=== PATIENT | male | born 1985 | race Caucasian/White ===

== ENCOUNTER 2018-02-11 21:17 | Emergency (ER) | payer OTHER, SELFPAY ==
[2018-02-11 21:19] VITALS: BP 165/101; PULSE 98; RESP 16; TEMP 36.6; O2SAT 96; BMI 45.1
--- NOTE | 2018-02-11 21:38 | RAD_ITS ---
STUDY: X-RAY - RIGHT WRIST REASON FOR EXAM: Male, 32 years old. Pain TECHNIQUE: 6 view(s) of the wrist were obtained. COMPARISON: None. FINDINGS: There is a negative ulnar variance but the lunate bone is normal. The rest of the carpal bones are normal. The radiocarpal articulation is well-maintained. The first carpometacarpal, carpal and mid carpal joints are normal. The soft tissues of the wrist are normal. RAD/Wrist min 3 Views IMPRESSION: No fracture. A negative ulnar variance. Normal lunate bone. No degenerative changes Electronically Signed: Noe Suarez MD at 21:55 EST Tel , Service support ,
--- NOTE | 2018-02-11 22:05 | ED.DCSUM_ITS ---
- ER Visit Summary Date of Service: 02/11/18 Chief Complaint: [Injury to right wrist] History of Present Illness: The patient is a 32 M [presents to the emergency department complaint of injury to his right wrist that occurred today around 4 PM while at work. Patient states that he was trying to dislodge apart off of the machine and the wrist rolled forward causing him significant discomfort. Patient is right-hand dominant. He denies any numbness or tingling. He denies any weakness the extremity. Complains of pain with range of motion.] Physical Examination: [Right wrist-there is mild diffuse soft tissue swelling with diffuse tenderness to palpation over the carpal bones and the radiocarpal joint. Patient has pain with flexion and extension of the wrist. He is able to make a fist and complete extend all digits. Neurovascularly intact. There is no deformity.] Test Results: [X-rays of the right wrist obtained showed negative ulnar variance but normal lunate bone. No fracture is noted. No dislocations.] Emergency Department Course and Treatment: [Patient was given a wrist splint and will be referred to orthopedics for follow-up] Treatment Plan: [Follow-up with orthopedics informatics consultant in 5-7 days.] Disposition: [Discharged home in stable condition] Impression: [Right wrist sprain] This note was generated with [employer] dictation software. It may contain incorrect words, spelling, and punctuation that were not noted in review of the chart prior to signing ED Disposition - Plan for ED Patient: Chief Complaint: Upper Extremity Injury Referrals: Care Physician,No Primary [Primary Care Provider] -
--- NOTE | 2018-02-11 22:08 | ED.DEP ---
ED Disposition - Plan for ED Patient: Chief Complaint: Upper Extremity Injury Instructions: ED Sprain Wrist Referrals: Care Physician,No Primary [Primary Care Provider] - Jake Keene MD [STAFF PHYSICIAN] - 5-7 Days
--- OUTSIDE RECORDS SUMMARY | 2018-05-16 14:06 | XMS RPT_ITS ---
:1985 Author Organization [facility] Care Team Providers Name Role Phone Saravanan Millard Attending Unavailable Primay Care Physicia, No Primary Care Unavailable Primay Care Physicia, No Primary Care Unavailable MENDY MATT Attending Unavailable PROBLEMS PROBLEMS No Problem Records FoundPROCEDURES PROCEDURES No Procedure Records FoundRESULTS RESULTS EMERGENCY DEPARTMENT Observed: 02/19/2018 Status: F Source: [place] SUMMARY 7:13 PM [facility] REPOSITORY [facility] Medical Records Department [address] [place] [address] Emergency Department Summary 02/19/18 1842 MR#: [id number] Acct: [id number] Name: KEANN DIETZ Rep #: [id number] : 1985 32 From: Mendy Matt MD PCP: Care Physician, No Primary Status: REG ER History of Present Illness Chief Complaint: Dental Informant: Patient Onset: Days - 2 Context: Gradual Onset Timing: Continuous Quality: ache Location: left upper molar Current Severity: Severe Maximum Severity: Severe Worsened by: eat/drink Relieved by: nothing - tried tylenol. has no topicals. Associated Symptoms: none. no fevers, swelling, earache. Past Medical History - Allergies and Home Meds Allergies/Adverse Reactions: Allergies No Known Allergies Allergy (Verified 02/11/18 21:22) Primary Care Physician: Care Physician,No Primary [Primary Care Provider] - Past Medical History: None Smoking Status: Former smoker Drugs: None Review of Systems General: Denies: Chills, Fever Eyes: Denies: Visual changes - bilaterally, Diplopia ENT: Reports: - - dental pain. Denies: Bilateral ear pain, Sore throat Gastrointestinal: Denies: Nausea, Vomiting Physical Exam Vital Signs/Narrative: Vital Signs 02/19/18 18:06 97.6 F L 90 16 155/97 H 98 Inital Vital Signs reviewed: Yes General: Well nourished, Well developed Head: Normocephalic, Atraumatic Eyes: Perrl, EOMI ENT: Moist mucous membranes, No rhinorrhea, - - Tender tooth #15, which appears to have a physical deficit posteriorly. No discharge or abscess. No trismus. No gingivitis or bleeding. No sublingual edema. No cervical lymphadenopathy.. Negative for: Sinus tenderness Neck: Supple, Nontender, No lymphadenopathy Skin: Normal color, No rash Neurological: Alert, Oriented x3, Cranial nerves II-XII grossly intact, Normal Strength, Normal Sensation, Normal Gait Psychological: Normal affect Diagnostic/Tx/Re-eval - Medical Decision Making Topical benzocaine was sprayed into the cavity site, followed by Cavit temporary filling. He tolerated this well and said that his tooth was already feeling better. He was additionally given a naproxen and amoxicillin, prescribed both, to treat any possible early infection, in addition to being given the rest of the vial of temporary dental filling. There is no abscess. Dental follow-up advised. He is comfortable with that plan. ED Disposition - Plan for ED Patient: Disposition: Home or Assisted Living Chief Complaint: Dental Diagnosis: Odontalgia, Dental caries Instructions: ED Tooth Pain, ED Cavity Dental Prescriptions: Naproxen [Naprosyn] 500 mg PO BID PRN #20 tab Amoxicillin 875 mg PO BID #20 tab Referrals: Dentist,Your [STAFF PHYSICIAN] - As soon as possible Jacinda Palumbo [NON-STAFF] - (if you do not have a dentist) What to do if you have Problems For any increased pain, shortness of breath, bleeding, nausea or vomiting, chest pain, or any unexpected problems, contact your Primary Care Provider. Call [facility] ([phone]) or report to the closest Emergency Room. Call 911 if necessary. 02/19/181912 <Electronically signed by Mendy Matt MD> Date Mendy Matt MD Cosigner Signature (If Indicated): Date CC: No Primary Care Physician DISCHARGE INSTRUCTION Observed: 02/11/2018 Status: F Source: [place] 10:09 PM [facility] REPOSITORY [facility] Medical Records Department [address] [place] [address] Discharge Instruction 02/11/182207 MR#: [id number] Acct: [id number] Name: KENAN DIETZ Rep #: [id number] : 1985 32 From: Saravanan Millard DO PCP: Care Physician, No Primary Status: REG ER ED Disposition - Plan for ED Patient: Chief Complaint: Upper Extremity Injury Instructions: ED Sprain Wrist Referrals: Care Physician,No Primary [Primary Care Provider] - Jake Keene MD [STAFF PHYSICIAN] - 5-7 Days What to do if you have Problems For any increased pain, shortness of breath, bleeding, nausea or vomiting, chest pain, or any unexpected problems, contact your Primary Care Provider. Call [facility] ([phone]) or report to the closest Emergency Room. Call 911 if necessary. 02/11/182208 <Electronically signed by Saravanan Millard DO> Date Saravanan Millard DO Cosigner Signature (If Indicated): Date CC: No Primary Care Physician EMERGENCY DEPARTMENT Observed: 02/11/2018 Status: F Source: [place] SUMMARY 10:05 PM [facility] REPOSITORY [facility] Medical Records Department [address] [place] [address] Emergency Department Summary 02/11/182202 MR#: [id number] Acct: [id number] Name: KENAN DIETZ Rep #: [id number] : 1985 32 From: Saravanan Millard DO PCP: Bib Physician, No Primary Status: REG ER - ER Visit Summary Date of Service: 02/11/18 Chief Complaint: [Injury to right wrist] History of Present Illness: The patient is a 32 M [presents to the emergency department complaint of injury to his right wrist that occurred today around 4 PM while at work. Patient states that he was trying to dislodge apart off of the machine and the wrist rolled forward causing him significant discomfort. Patient is right-hand dominant. He denies any numbness or tingling. He denies any weakness the extremity. Complains of pain with range of motion.] Physical Examination: [Right wrist-there is mild diffuse soft tissue swelling with diffuse tenderness to palpation over the carpal bones and the radiocarpal joint. Patient has pain with flexion and extension of the wrist. He is able to make a fist and complete extend all digits. Neurovascularly intact. There is no deformity.] Test Results: [X-rays of the right wrist obtained showed negative ulnar variance but normal lunate bone. No fracture is noted. No dislocations.] Emergency Department Course and Treatment: [Patient was given a wrist splint and will be referred to orthopedics for follow-up] Treatment Plan: [Follow-up with orthopedics recreation professor in 5-7 days.] Disposition: [Discharged home in stable condition] Impression: [Right wrist sprain] This note was generated with [employer] dictation software. It may contain incorrect words, spelling, and punctuation that were not noted in review of the chart prior to signing ED Disposition - Plan for ED Patient: Chief Complaint: Upper Extremity Injury Referrals: Care Physician,No Primary [Primary Care Provider] - What to do if you have Problems For any increased pain, shortness of breath, bleeding, nausea or vomiting, chest pain, or any unexpected problems, contact your Primary Care Provider. Call [facility] ([phone]) or report to the closest Emergency Room. Call 911 if necessary. 02/11/18 8071 <Electronically signed by Saravanan Millard DO> Date Saravanan Millard DO Cosigner Signature (If Indicated): Date CC: No Primary Care Physician WRIST MIN 3 VIEWS Observed: 02/11/2018 Status: F Source: [place] 9:35 PM [facility] REPOSITORY [facility] Imaging Services [address] [place] [address] Wrist min 3 Views MR#: [id number] Acct: [id number] Name: KENAN DIETZ Rep #: [id number] : 1985 [facility] From: Noe Suarez MD PCP: Care Physician, No Primary Status: REG ER Study: Wrist min 3 Views Date of Exam: 02/11/18 Exam# [id number] Ordering Dr: Saravanan Millard DO STUDY: X-RAY - RIGHT WRIST REASON FOR EXAM: Male, 32 years old. Pain TECHNIQUE: 6 view(s) of the wrist were obtained. COMPARISON: None. FINDINGS: There is a negative ulnar variance but the lunate bone is normal. The rest of the carpal bones are normal. The radiocarpal articulation is well-maintained. The first carpometacarpal, carpal and mid carpal joints are normal. The soft tissues of the wrist are normal. RAD/Wrist min 3 Views IMPRESSION: No fracture. A negative ulnar variance. Normal lunate bone. No degenerative changes Electronically Signed: Noe Suarez MD at 21:55 EST Tel , Service support , CC: No Primary Care Physician; Saravanan Millard DO Artist'S Representative: Signed ALLERGIES ALLERGIES DATE TYPE / CODE NAME / CODE REACTION SEVERITY SOURCE 02/19/2018 Drug No Known Unknown [facility] Allergy/4160 Allergies/F00 Hospital [address](SNOMED [id number](RXNOR Repository CT) M) ENCOUNTERS ENCOUNTERS ADMIT/DISCHARGE ACCOUNT ADMITTING ENCOUNTER LOCATION SOURCE NUMBER CLASS 02/19/2018/ [id number] Emergency [address] ing:ED Repository 02/11/2018/ [id number] Emergency [address] ing:ED Repository PAYERS PAYERS ENCOUNTER GUARANTOR PAYER SUBSCRIBER SOURCE 02/19/2018 KENAN DIETZ2222 Insurance:ANTHEMPolic SHAFFERDOB: Community [address] y Number: [id number] [id number] Repository [address]: [phone]) robert Date:[id number] [phone] () [address], [place] [address]YK: 02/19/2018 Secondary NOT GIVENUNK [place] Insurance:SELF PAY [facility] Number: Effective Repository Date:2018-02-19 02/11/2018 KENAN COBBFFER2222 Insurance:SELF INS SHAFFERDOB: Community [address] [facility] LUKPolicy Number: [id number] [id number] Repository [address]Bnv: (330) Date:[id number] [phone] () [facility] [address] [address], [place] [address]GH: 02/11/2018 Secondary NOT GIVENUNK [place] Insurance:SELF PAY [facility] Number: Effective Repository Date:2018-02-11
== END 2018-02-11 22:29 | disposition home or self-care (01) ==
LOC: ED 21:44
PROVIDERS: Emergency Provider Emergency Medicine
DX: S63.501A Unspecified sprain of right wrist, initial encounter (principal); X50.9XXA Other and unspecified overexertion or strenuous movements or postures, initial encounter; Y93.9 Activity, unspecified; Y92.89 Other specified places as the place of occurrence of the external cause; Y99.0 Civilian activity done for income or pay
CPT/HCPCS: 73110; 99283

== ENCOUNTER 2018-02-19 18:04 | Emergency (ER) | payer BC, SELFPAY ==
[2018-02-19 18:06] VITALS: BP 155/97; PULSE 90; RESP 16; TEMP 36.4; O2SAT 98; BMI 38.2
--- NOTE | 2018-02-19 18:45 | ED.DCSUM_ITS ---
History of Present Illness Chief Complaint: Dental Informant: Patient Onset: Days - 2 Context: Gradual Onset Timing: Continuous Quality: ache Location: left upper molar Current Severity: Severe Maximum Severity: Severe Worsened by: eat/drink Relieved by: nothing - tried tylenol. has no topicals. Associated Symptoms: none. no fevers, swelling, earache. Past Medical History - Allergies and Home Meds Allergies/Adverse Reactions: Allergies No Known Allergies Allergy (Verified 02/11/18 21:22) Primary Care Physician: Care Physician,No Primary [Primary Care Provider] - Past Medical History: None Smoking Status: Former smoker Drugs: None Review of Systems General: Denies: Chills, Fever Eyes: Denies: Visual changes - bilaterally, Diplopia ENT: Reports: - - dental pain. Denies: Bilateral ear pain, Sore throat Gastrointestinal: Denies: Nausea, Vomiting Physical Exam Vital Signs/Narrative: Vital Signs Temp Pulse Resp BP Pulse Ox 02/19/18 18:06 97.6 F L 90 16 155/97 H 98 Inital Vital Signs reviewed: Yes General: Well nourished, Well developed Head: Normocephalic, Atraumatic Eyes: Perrl, EOMI ENT: Moist mucous membranes, No rhinorrhea, - - Tender tooth #15, which appears to have a physical deficit posteriorly. No discharge or abscess. No trismus. No gingivitis or bleeding. No sublingual edema. No cervical lymphadenopathy.. Negative for: Sinus tenderness Neck: Supple, Nontender, No lymphadenopathy Skin: Normal color, No rash Neurological: Alert, Oriented x3, Cranial nerves II-XII grossly intact, Normal Strength, Normal Sensation, Normal Gait Psychological: Normal affect Diagnostic/Tx/Re-eval - Medical Decision Making Topical benzocaine was sprayed into the cavity site, followed by Cavit temporary filling. He tolerated this well and said that his tooth was already feeling better. He was additionally given a naproxen and amoxicillin, prescribed both, to treat any possible early infection, in addition to being given the rest of the vial of temporary dental filling. There is no abscess. Dental follow-up a dvised. He is comfortable with that plan. ED Disposition - Plan for ED Patient: Disposition: Home or Assisted Living Chief Complaint: Dental Diagnosis: Odontalgia, Dental caries Instructions: ED Tooth Pain, ED Cavity Dental Prescriptions: Naproxen [Naprosyn] 500 mg PO BID PRN #20 tab Amoxicillin 875 mg PO BID #20 tab Referrals: Dentist,Your [STAFF PHYSICIAN] - As soon as possible Jacinda Palumbo [NON-STAFF] - (if you do not have a dentist)
[2018-02-19] MEDS: Naproxen 500 MG Tablet PO (19:11)
[2018-02-19] MEDS: AMOXICILLIN 500 MG CAPSULE PO (19:11)
== END 2018-02-19 19:14 | disposition home or self-care (01) ==
PROVIDERS: Emergency Provider Emergency Medicine
DX: K02.9 Dental caries, unspecified (principal); K08.89 Other specified disorders of teeth and supporting structures; Z87.891 Personal history of nicotine dependence
CPT/HCPCS: 99283

== ENCOUNTER 2019-08-04 12:08 | Emergency (ER) | payer BC, SELFPAY ==
[2019-08-04 12:09] VITALS: BP 155/71; PULSE 102; RESP 17; TEMP 36.1; O2SAT 97; BMI 51.8
--- NOTE | 2019-08-04 12:22 | ED.VIS.BACK ---
History of Present Illness Informant: Patient Onset: Today Context: Gradual Onset Chronic pain exacerbated by: sleeping on couch Injury: - - sleeping on couch Timing: Continuous Quality: Sharp Location: Lumbar Current Severity: Moderate Maximum Severity: Severe Worsened by: improves with: Movement, Ambulation, Bending Relieved by: Nothing Narrative: 34-year-old male presents to the emergency department with low back pain. Patient has chronic low back pain, he accidentally fell asleep on the couch last night and woke up with some pain and what he describes as tightness in his back. 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 He denies any numbness tingling or weakness loss of bowel or bladder function or trauma. He is ambulatory. No difficulty urinating or constipation. No fevers. He denies IV drug abuse. He denies abdominal pain. He denies fevers or upper respiratory symptoms. He denies leg pain or swelling. Prior similar symptoms: Yes, With Prior Back Pain Recent Illness/Hospitalization: No <Dennis Jones - Last Filed: 08/04/19 12:22> <Vijay Luo - Last Filed: 08/04/19 16:12> Chief Complaint: Back Past Medical History Prior records reviewed: Yes Past Medical History: None Surgical History: no surgical history Lives: With Family Smoking Status: Former smoker Alcohol: Occasional Drugs: None <Dennis Jones - Last Filed: 08/04/19 12:22> <Vijay Luo - Last Filed: 08/04/19 16:12> - Allergies and Home Meds Allergies/Adverse Reactions: Allergies No Known Allergies Allergy (Verified 08/04/19 12:08) Primary Care Physician: Rachel Hendricks DO [STAFF PHYSICIAN] - Review of Systems All systems negative except as indicated General: Denies: Chills, Fever, Malaise, Subjective, Sweats Eyes: Denies: Visual changes - bilaterally, Diplopia ENT: Denies: Rhinorrhea, Sore throat Cardiovascular: Denies: Chest pain, Palpitations Respiratory: Denies: Dyspnea, Cough, Dyspnea on exertion Gastrointestinal: Denies: Abdominal pain, Nausea, Vomiting, Diarrhea, Melena, Hematochezia Genitourinary: Denies: Dysuria, Hematuria, Frequency Musculoskeletal: Reports: Back pain. Denies: Myalgias, Arthralgias, Neck pain, Swelling, Extremity Pain Skin: Denies: Rash, Abrasions, Wounds Neurological: Denies: Headache, Weakness, Parasthesia, Numbness <Dennis Jones - Last Filed: 08/04/19 12:22> Physical Exam Vital Signs/Narrative: Vital Signs Temp Pulse Resp BP Pulse Ox 08/04/19 12:09 96.9 F L 102 H 17 155/71 H 97 Inital Vital Signs reviewed: Yes General: Well nourished, Well developed Head: Normocephalic, Atraumatic Eyes: Perrl, EOMI ENT: Moist mucous membranes Neck: Supple, Nontender, No lymphadenopathy, No JVD Cardiovascular: Regular rate, Regular rhythm Respiratory: No distress, CTA bilaterally, Chest nontender Abdomen: Soft, Nontender, Nondistended, Normal bowel sounds, No masses Back: Normal Inspection, Paraspinal Tenderness, Negative SLR - Right, Negative SLR - Left. Negative for: Surgical Scar, Spinal tenderness, CVA tenderness, Positive SLR - Right, Positive SLR - Left Extremeties: Nontender, No edema, Strong Pulses Skin: Normal color, No rash, No Trauma Neuro: Alert, Oriented, Normal Strength, Normal Sensation, Normal DTR, Normal Gait, Normal Reflexes Psychological: Normal affect, Normal Mood <Dennis Jones - Last Filed: 08/04/19 12:22> Diagnostic/Tx/Re-eval - Medical Decision Making Patient presents with low back pain. Patient slept on his couch last night and has tightness in his back and does not feel comfortable going to work. He does not have any signs or symptoms concerning for cauda equina syndrome at this time. Patient has stable vital signs and is well-appearing. He declined analgesia in the emergency department. He is requesting a note for work. This will be provided and prescriptions for both Naprosyn and Flexeril. I advised him to rest and ice and I provided him with a primary care physician to follow-up with. Return precautions to the emergency department were reviewed and the patient voiced understanding <Dennis Jones - Last Filed: 08/04/19 12:22> - Medical Decision Making Patient was seen with me. I did a pstd-ex-augm evaluation with the patient. Patient presents with low back pain that began today while he was at work. Patient states he slept on his couch last night while watching TV. Patient states his pain is been getting progressively worse. Patient denies any radiation of the pain. Patient denies any paresthesias or weakness. Patient denies any bowel or bladder changes. Patient denies any saddle anesthesia. Vital signs are stable. Patient is afebrile. Patient is in no acute distress. Musculoskeletal exam reveals tenderness over the lumbar paraspinal muscles bilaterally. There is some mild spasm. Range of motion was limited in all motions of the lumbar spine secondary to pain. Strength is 5/5 bilaterally in lower extremities. There are no sensory deficits noted. Deep tendon reflexes are 2/4 bilaterally in the lower extremities. Pedal pulses are equal bilaterally. Patient was given prescriptions for Naprosyn and Flexeril. Patient instructed to use ice to the area. Patient was given a note for work for today. Patient was instructed to follow-up with his primary care physician in 5 to 7 days. Patient understood and was agreeable with the plan. All questions were answered. <Vijay Luo - Last Filed: 08/04/19 16:12> ED Disposition <Dennis Jones - Last Filed: 08/04/19 12:22> <Vijay Luo - Last Filed: 08/04/19 16:12> - Plan for ED Patient: Disposition: Home or Assisted Living Diagnosis: Low back pain Instructions: ED Back Pain Acute or Chronic Prescriptions: cycloBENZAPRine HCl [Flexeril] 10 mg PO TID PRN #20 tab PRN Reason: Muscle Spasm Prescription Printed Naproxen [Naprosyn] 500 mg PO BID #20 tab Prescription Printed Referrals: Rachel Hendricks DO [STAFF PHYSICIAN] -
== END 2019-08-04 12:47 | disposition home or self-care (01) ==
LOC: ED 12:47
PROVIDERS: Emergency Provider Physician Assistant Medical
DX: M54.5 Low back pain (principal); G89.29 Other chronic pain; Z87.891 Personal history of nicotine dependence
CPT/HCPCS: 99282

== ENCOUNTER 2022-11-05 15:11 | Emergency (ER) | payer MEDICAID, SELFPAY ==
[2022-11-05 15:11] VITALS: BP 154/90; PULSE 91; RESP 16; TEMP 36.1; O2SAT 95; BMI 43.2
--- NOTE | 2022-11-05 16:18 | CT_ITS ---
STUDY: CT SOFT TISSUE NECK WITH CONTRAST REASON FOR EXAM: Male, 37 years old. swelling and pain IN NECK RADIATION DOSAGE (If Supplied By Facility): CTDIvol = ( 18.25 ) mGy, DLP = ( 556.40 ) mGycm TECHNIQUE: The patient was scanned in a multi-detector CT scanner. High resolution transaxial imaging was performed following intravenous administration of IV 100mL Isovue-370. Sagittal and coronal images were reconstructed. Individualized dose optimization techniques were used for this CT. COMPARISON: None. FINDINGS: Mild diffuse edematous changes or cellulitis are seen within the subcutaneous fat of the jaw bilaterally with associated thickening of the platysma. There are mildly enlarged nodes within the submandibular and sublingual spaces bilaterally larger on the left. There is also a large node within the left posterior triangle. There are tiny bilateral nonenhancing periparotid nodes Normal bilateral glass science engineer spaces. Normal bilateral parapharyngeal spaces. Normal bilateral carotid spaces. Normal bilateral sublingual and submandibular glands and spaces. Normal visualized nasopharynx. Normal retropharyngeal space. Normal perivertebral space. Normal visualized bilateral faucial tonsils. The visualized tongue, tongue base and oropharynx are normal. The visualized cervical lymph nodes (levels I-) are within normal size limits, and maintain normal morphology. There is no demonstrated solid or cystic mass lesion. There is no abnormal contrast enhancement. Normal epiglottis, bilateral vallecula and hypopharynx. The pre-epiglottic and paraglottic adipose spaces are normal. Normal visualized bilateral piriform sinuses, aryepiglottic folds, vocal cords, and arytenoid-cricoid articulations. Normal subglottic trachea. Normal bilateral lobes of the thyroid gland. Normal visualized pulmonary apices. Normal visualized paranasal sinuses. Normal visualized cervical spine. CT/Soft Tissue Neck WITH Contrast IMPRESSION: Diffuse edematous changes or cellulitis within the subcutaneous fat of the jaw bilaterally with enlarged nodes more pronounced on the left of indeterminate etiology likely due to inflammatory changes. No focal abscess or evidence for acute osteomyelitis. Otherwise no discrete mass within the neck however endoscopic evaluation recommended to exclude possibility of mucosal lesions if clinically warranted Electronically Signed: Edmundo Geiger MD at 17:29 EDT ,
--- NOTE | 2022-11-05 16:40 | ED.VIS.DENTA ---
HPI History of Present Illness Chief Complaint: Dental Informant: patient Narrative Narrative: 37-year-old male presenting to the emergency department chief complaint of jaw swelling. Patient states that he knows he has some dental issues for which she needs to see dentistry. He tells me that his central incisor on the jawline is loose and may fall out. He is developed a swelling along the left mandible now into the anterior portion of the mandible. He has not had any significant swelling. No fevers. No change in his saliva production. He denies any swelling inside the mouth. He states that due to the swelling has become slightly difficult to swallow. [facility] Medical History (Updated 11/05/22 @ 17:[address] Maxime Ron DO) Back problem Frequent headaches H/O emotional problems Home Medications baclofen 10 mg tablet 10 mg PO QHS PRN muscle spasm #30 tabs 09/03/19 [Rx Last Taken Unknown] blood pressure monitor #1 ea 09/03/19 [Rx Last Taken Unknown] meloxicam 15 mg tablet 15 mg PO DAILY PRN pain #30 tabs 09/03/19 [Rx Last Taken Unknown] amoxicillin 875 mg-potassium clavulanate 125 mg tablet 1 tab PO BID 10 days #20 tabs 11/05/22 [Rx Last Taken Unknown] hydrocodone-acetaminophen 5-325mg 5mg-325mg 1 tab PO Q6H PRN PRN Pain 3 days #12 TABLETS 11/05/22 [Rx Last Taken Unknown] Allergy/AdvReac Type Severity Reaction Status Date / Time No Known Allergies Allergy Verified 11/05/22 15:13 Family History Grandmother Diabetes Arthritis Father Bipolar 1 disorder Social History Smoking Status: Former smoker alcohol intake: current alcohol intake frequency: holidays/special occasions only Alcohol type: beer substance use type: does not use what type of physical activity do you participate in: none ROS ROS ED Constitutional Constitutional ED: Denies chills, fever(s) or weight loss Eyes Eyes: Denies change in vision or diplopia ENT ENT ED: Reports other Details: See history of present illness ; Denies ear pain, rhinorrhea or sore throat Cardiovascular Cardiovascular: Denies chest pain, orthopnea, palpitations or racing heartbeat Respiratory/Chest Respiratory/Chest: Denies cough, dyspnea or orthopnea Gastrointestinal Gastrointestinal: Denies abdominal pain, diarrhea, nausea or vomiting Genitourinary Genitourinary ED: Denies dysuria, hematuria or urinary frequency Musculoskeletal Musculoskeletal: Denies arthralgias or myalgias Integumentary Denies abscess or rash Neurologic Neurologic: Denies headache(s) or weakness Psychiatric Psychiatric: Denies anxiety, depression, suicidal ideation or suicidal thoughts Endocrine Endocrinology: Denies polydipsia, polyphagia or polyuria Allergic/Immunologic Allergic/Immunologic ED: Denies mouth swelling, tongue swelling or urticaria EXAM Physical Exam Const Vital Signs: 11/05/22 15:11 Temperature 97 F L Temperature Source Temporal Pulse Rate 91 Respiratory Rate 16 Blood Pressure 154/90 H Blood Pressure Mean 111 Pulse Ox 95 Oxygen Delivery Method Room Air Positive well nourished, well developed and obese General Appearance ED: well developed Nutritional Appearance: obese HEENT Reports normocephalic, head/scalp atraumatic and moist mucous membranes HEENT Narrative: There is widespread dental caries and evidence of gingivitis. There is floor the mouth is soft with no significant swelling. There is no trismus. There is no drainable abscess that I can see. There is a degree of swelling along the inferior left mandible extending into the anterior mandible. There is no overlying erythema. He is laying back in a 45 degree angle handling his secretions. Eyes PERRL and EOMs intact bilaterally Neck no lymphadenopathy, supple and no JVD Resp normal respiratory effort and clear to auscultation bilaterally Cardio regular rate, regular rhythm and no murmurs GI normal to inspection, nondistended, normoactive bowel sounds and non-tender Palpation: soft Back/Spine no CVA tenderness and normal ROM Extremity normal to inspection General Extremety ED: Negative for edema General Extremity: Negative for edema Neuro oriented x3 and CN's II-XII intact bilaterally Sensorium / Orientation: alert Motor Exam: strength 5/5 throughout Psych mental status grossly normal Mood & Affect: Negative for depressed or tearful Skin no rashes or lesions noted and no wounds MDM MDM MDM Narrative Medical decision making narrative: Creatinine is normal 0.92. This was obtained as the patient tells me he has been taking a lot of ibuprofen. His blood sugar is also noted to be 237. He needs to have primary care follow this up. CT of the neck with IV contrast was obtained. This demonstrates edematous changes in the subcutaneous tissue. There is no focal abscess noted. The patient will be started on Augmentin and pain medication. I did recommend dental follow-up. He notes understanding of return instructions. He also notes that he needs to follow-up on his blood sugar. Lab Data Attestation: I reviewed the patient's lab results. Labs: Laboratory Results - last 24 hr 11/05/22 16:28 Sodium 135 L Potassium 4.2 Chloride 102 Carbon Dioxide 29.0 Anion Gap 4 L BUN 16 Creatinine 0.92 Estim Creat Clear Calc 95.63 Est GFR (MDRD) Af Amer 119 Est GFR (MDRD) Non-Af 98 BUN/Creatinine Ratio 17.4 Glucose 237 H Calcium 9.7 Radiography Diagnostic Testing: Clinical Impression(s) from Imaging Studies Soft Tissue Neck CT 11/05/22 16:18 IMPRESSION: Diffuse edematous changes or cellulitis within the subcutaneous fat of the jaw bilaterally with enlarged nodes more pronounced on the left of indeterminate etiology likely due to inflammatory changes. No focal abscess or evidence for acute osteomyelitis. Otherwise no discrete mass within the neck however endoscopic evaluation recommended to exclude possibility of mucosal lesions if clinically warranted Electronically Signed: Edmundo Geiger MD at 17:29 EDT , Discharge Plan Triage Chief Complaint: Dental ED Provider: Maxime Ron Dx/Rx/DC Orders Clinical Impression: Cellulitis of neck, Dental caries, Hyperglycemia Instructions: High Blood Sugar (Hyperglycemia), ED Cellulitis, ED Dental Cavity Prescriptions: New amoxicillin-pot clavulanate 875-125 mg tablet 1 tab PO BID 10 Days Qty: 20 0RF hydrocodone-acetaminophen [hydrocodone-acetaminophen] 5-325 mg tablet 1 tab PO Q6H PRN PRN (Reason: Pain) 3 Days Qty: 12 0RF No Action baclofen 10 mg tablet 10 mg PO QHS PRN (Reason: muscle spasm) Qty: 30 0RF meloxicam 15 mg tablet 15 mg PO DAILY PRN (Reason: pain) Qty: 30 0RF (DME) blood pressure monitor Kit See Rx Instructions .ROUTE .MEDSUPPLY Qty: 1 0RF Rx Instructions: Check blood pressure daily for hypertension I10 Primary Care Provider: Care Physician,No Primary Referrals: Care Physician,No Primary [Primary Care Provider] - Disposition Disposition: Home, Self Care
[2022-11-05 16:50] LABS: Anion Gap 4 (5-15); BUN 16 mg/dL (7-18); BUN/Creat Ratio 17.4 RATIO (10-20); Calcium,Total 9.7 mg/dL (8.5-10.1); Chloride 102 mmol/L (98-107); Creatinine, Serum 0.92 mg/dL (0.70-1.30); EST Glomerular Filtration Rate 98 mL/min (>60); Est Glom Filt Rate - Afr Amer 119 mL/min (>60); Estimated Creatinine Clearance 95.63 ml/min; Glucose 237 mg/dL (74-106); Potassium 4.2 mmol/L (3.5-5.1); Sodium Level 135 mmol/L (136-145)
== END 2022-11-05 18:03 | disposition home or self-care (01) ==
PROVIDERS: Emergency Provider Emergency Medicine; Visit Provider Emergency Medicine
DX: L03.221 Cellulitis of neck (principal); K02.9 Dental caries, unspecified; R73.9 Hyperglycemia, unspecified; R60.9 Edema, unspecified; E66.9 Obesity, unspecified; Z79.899 Other long term (current) drug therapy; Z87.891 Personal history of nicotine dependence
CPT/HCPCS: 70491; 80048; 99283; A4216

== ENCOUNTER 2022-11-21 03:31 | Emergency (ER) | payer MEDICAID, SELFPAY ==
[2022-11-21 03:33] VITALS: BP 162/91; PULSE 82; RESP 16; TEMP 36.7; O2SAT 98; BMI 44.0
--- NOTE | 2022-11-21 04:14 | EX.ED.DYSGE1 ---
HPI History of Present Illness Chief Complaint: Edema Detail of Chief Complaint: neck swelling Informant: patient Onset/Context/Timing Onset: Days (3-4) Context: Gradual Onset Timing: Continuous Narrative Narrative: About 2 weeks ago patient was here because of the same problem, swelling below his chin and the anterior neck that is painful and red. He states it started with painful teeth he cannot remember which ones, but his teeth are not bothering him anymore. They were really hurting and seemed to then form this tender swollen area. He was seen here and had a CT scan that showed no abscess, he was put on amoxicillin and advised to follow-up with a dentist. He has not been able to find one that takes into his urine so he has not seen one yet, he finished the antibiotic 1 week ago. He states while he was on the antibiotic the swelling improved but never went away. He states over the last several days it has gotten worse, but it still is not as bad as it was when he was here and had a CT scan according to the patient. He denies any systemic symptoms like fevers or chills. He denies any trouble swallowing or breathing. [facility] Medical History Back problem Frequent headaches H/O emotional problems Home Medications blood pressure monitor #1 ea 09/03/19 [Rx Last Taken Unknown] clindamycin HCl 150 mg capsule 300 mg (2 x 150 mg) PO 4X/DAY #80 CAPSULES 11/21/22 [Rx Last Taken Unknown] Allergy/AdvReac Type Severity Reaction Status Date / Time No Known Allergies Allergy Verified 11/21/22 03:32 Family History Grandmother Diabetes Arthritis Father Bipolar 1 disorder Social History Smoking Status: Former smoker alcohol intake: current alcohol intake frequency: holidays/special occasions only Alcohol type: beer substance use type: does not use what type of physical activity do you participate in: none ROS ROS ED Constitutional Constitutional ED: Denies chills or fever(s) ENT ENT ED: Reports as per HPI, neck pain and other Details: Dental pain resolved. Neck swelling see HPI. ; Denies ear pain or sore throat Cardiovascular Cardiovascular: Denies chest pain or palpitations Respiratory/Chest Respiratory/Chest: Denies cough or dyspnea Gastrointestinal Gastrointestinal: Denies nausea or vomiting Integumentary Reports as per HPI and abscess; Denies rash Neurologic Neurologic: Denies headache(s), paresthesias or weakness EXAM Physical Exam Const Vital Signs: 11/21/22 03:33 11/21/22 03:36 Temperature 98.1 F Temperature Source Temporal Pulse Rate 82 Respiratory Rate 16 Respiratory Effort Normal Respiratory Pattern Normal Blood Pressure 162/91 H Blood Pressure Mean 114 Pulse Ox 98 Oxygen Delivery Method Room Air Positive well nourished and well developed General Appearance ED: well developed and NAD HEENT Reports moist mucous membranes HEENT Narrative: Mild trismus. Able to open mouth enough to examine all teeth. There is diffuse decay. Left mandibular second molar is half broken off and tender without any associated abscess. Mandibular incisors are loosened but without significant pain. Sublingual tissues are nondistended and nontender. There is no tongue elevation and the tongue is normal. He has no stridor or muffled voice. Eyes PERRL and EOMs intact bilaterally Neck Neck Narrative: Significant submental swelling, induration, erythema, tenderness. It feels taut. There is no expressible discharge from anywhere. Resp normal respiratory effort Extremity normal to inspection Neuro oriented x3, CN's II-XII intact bilaterally, no sensory deficits noted and gait normal Motor Exam: strength 5/5 throughout Psych mental status grossly normal Skin no wounds Skin Narrative: Erythema, tender, induration submental severely swollen area see above. No other rashes or lesions. MDM MDM MDM Narrative Medical decision making narrative: I reviewed the patient's prior ED visit and imaging. He showed inflammation consistent with cellulitis in the area of interest submental, without a collection/abscess. Patient states it was worse then, however clinically here, at first glance it looks like a Diane's angina. However it does not affect the deep space tissues or sublingual tissues, nor does he have any dyspnea or problems swallowing which he should have for its size if it involve the deep tissues. It is very indurated and taut, and suspicious for an abscess. Instead of repeat scanning him, I recommended locally anesthetizing and just using a needle to aspirate it and see if we could get anything out. He was amenable to that, in addition to placing him on more antibiotics. A significant amount of pus was removed. This was sent for culture, since it seems to be just subcutaneous, as opposed to deep space neck, although the history suggest that it came from dentition. Placing him on clindamycin and referring him to oral maxillofacial surgery if it does not resolve with the antibiotics. He is comfortable with that plan, he felt much better after the procedure. Procedures Other Procedures Procedure(s): Simple abscess I & D: Area prepped with isopropanol. At its most pointing aspect centrally, anterior neck abscess was locally anesthetized with 1 cc of 1% lidocaine with epinephrine with a 25-gauge needle, which injected easily, and releasing the plunger allowed what appeared to be purulent material to back up into the syringe of lidocaine. Therefore a new sterile 18-gauge needle with a 30 cc syringe was inserted through this area painlessly, and I filled the 30 cc syringe with pus and a small amount of blood. The abscess mostly deflated although there was still some swelling and induration. Taking a new needle and 30 cc syringe and reprepping with isopropanol, I again inserted a needle redirecting it in several different directions, taking care to stop whenever the patient started to feel discomfort, there is no other pockets of purulence able to be aspirated, just a small amount of blood, the area was dressed with sterile gauze. Pus sent for culture. Tolerated well no complications. Discharge Plan Triage Chief Complaint: Edema ED Provider: Klever Vázquez Dx/Rx/DC Orders Clinical Impression: Cutaneous abscess of neck Instructions: ED Abscess Incision And Drainage Prescriptions: New clindamycin HCl 150 mg capsule 300 mg PO 4X/DAY Qty: 80 0RF No Action (DME) blood pressure monitor Kit See Rx Instructions .ROUTE .MEDSUPPLY Qty: 1 0RF Rx Instructions: Check blood pressure daily for hypertension I10 Primary Care Provider: Care Physician,No Primary Referrals: Jean Claude Salamanca DDS [Med Staff - Active Staff] - 1 Week if not improving Care Physician,No Primary [Primary Care Provider] - Disposition Disposition: Home, Self Care
[2022-11-21] MEDS: Clindamycin HCl 150 MG Capsule 300 MG PO (04:23)
== END 2022-11-21 04:39 | disposition home or self-care (01) ==
PROVIDERS: Emergency Provider Emergency Medicine; Visit Provider Emergency Medicine
DX: L02.11 Cutaneous abscess of neck (principal); K02.9 Dental caries, unspecified; Z87.891 Personal history of nicotine dependence
CPT/HCPCS: 10060; 87070; 87077; 87186; 87205; 99283

== ENCOUNTER 2024-12-07 15:03 | Emergency (ER) | payer MEDICAID, SELFPAY ==
[2024-12-07 15:05] VITALS: BP 158/102; PULSE 89; RESP 18; TEMP 36.1; O2SAT 100; BMI 44.5
--- NOTE | 2024-12-07 15:57 | EKG12_ITS ---
Test Reason : POST CP Blood Pressure : */* mmHG Vent. Rate : 77 BPM Atrial Rate : 77 BPM P-R Int : 144 ms QRS Dur : 84 ms QT Int : 370 ms P-R-T Axes : 19 6 24 degrees QTcB Int : 418 ms Normal sinus rhythm Normal ECG Confirmed by ROOSEVELT HOPKINS, DAYRON ([id number]), editor house organ POWER FELICIANO ([id number]) on 12/10/2024 7:38:57 AM Referred By: TB/ES Confirmed By: DAYRON ALBERT MD
--- NOTE | 2024-12-07 15:58 | EDS_ITS ---
HPI History of Present Illness Chief Complaint: Chest Pain Informant: patient Onset/Context/Timing Onset: Today Activity at onset: sudden Timing: Intermittent Quality: Positive for Aching and Tightness Location: Substernal, Right Parasternal, Left Parasternal, Right Chest and Left Chest Worsened By: Nothing Relieved By: Nothing Associated Symptoms: Positive for Cough and Acid Reflux; Negative for Nausea, Vomiting, Diaphoresis, Dyspnea, Fever, Lightheadedness or Palpitations Narrative Narrative: Patient presents with chest pain that began today. Patient states he went to work and started having some pain in his chest. Patient states it came on rather suddenly. Patient states it comes and goes. Patient describes it as aching and tightness. Patient states the pain radiates into his left arm. Patient states the pain is diffuse across his entire chest. Patient states nothing makes it worse and nothing makes it better. Patient admits to a mild cough. Patient also admits to some gastroesophageal reflux symptoms. Patient denies any nausea or vomiting. Patient denies any shortness of breath. Patient denies any diaphoresis. [facility] Medical History (Updated 12/07/24 @ 17:[address] Vijay Luo DO) H/O emotional problems Back problem Frequent headaches Home Medications ?Medication ?Instructions ?Recorded ?Last Taken ?Type blood pressure monitor #1 ea 09/03/19 Unknown Rx Allergy/AdvReac Type Severity Reaction Status Date / Time No Known Allergies Allergy Verified 12/07/24 15:05 Family History Grandmother Diabetes Arthritis Father Bipolar 1 disorder Social History Smoking Status: Former smoker alcohol intake: current alcohol intake frequency: holidays/special occasions only Alcohol type: beer substance use type: does not use what type of physical activity do you participate in: none ROS ROS ED Constitutional Constitutional ED: Denies chills or fever(s) Eyes Eyes: Denies blurry vision or change in vision ENT ENT ED: Reports rhinorrhea; Denies sore throat Cardiovascular Cardiovascular: Reports chest pain; Denies palpitations Respiratory/Chest Respiratory/Chest: Reports cough; Denies dyspnea Gastrointestinal Gastrointestinal: Denies nausea or vomiting Genitourinary Genitourinary ED: Denies dysuria or hematuria Musculoskeletal Musculoskeletal: Reports neck pain; Denies back pain Integumentary Denies abscess or rash Neurologic Neurologic: Denies headache(s) or weakness Allergic/Immunologic Allergic/Immunologic ED: Denies mouth swelling or urticaria EXAM Physical Exam Const Vital Signs: 12/07/24 15:04 12/07/24 15:05 Temperature 96.9 F L Temperature Source Temporal Pulse Rate 89 Respiratory Rate 18 Respiratory Effort Normal Non-Labored Blood Pressure 158/102 H Blood Pressure Mean 120 Pulse Ox 100 Oxygen Delivery Method Room Air Positive well nourished and well developed Constitutional Narrative: BMI is 44.6. General Appearance ED: well developed and NAD HEENT Reports moist mucous membranes Neck supple and no JVD Chest Wall palpation of chest normal Resp normal respiratory effort and clear to auscultation bilaterally Cardio regular rate and regular rhythm GI soft to palpation, non-tender and non-distended Extremity normal to inspection General Extremety ED: Negative for edema or tenderness General Extremity: Negative for edema Neuro oriented x3, CN's II-XII intact bilaterally and no sensory deficits noted Sensorium / Orientation: awake and alert Motor Exam: strength 5/5 throughout Psych mental status grossly normal Heart Score History: Slightly/Non-Suspicious ECG: Normal Age: </= 45 years Risk Factors: No Risk Factors Troponin: </= Normal Limit Score: 0 MDM MDM MDM Narrative Medical decision making narrative: Differential diagnosis includes cardiac dysrhythmia, cardiac ischemia, pneumonia, bronchitis, gastroesophageal reflux disease, musculoskeletal pain, and anxiety. EKG will be obtained to assess for cardiac dysrhythmia and cardiac ischemia. Chest x-ray will be obtained to assess for pneumonia and bronchitis. CBC will be obtained to assess for leukocytosis and anemia. Basic metabolic profile will be obtained to assess for electrolyte abnormality and renal function. High-sensitivity troponin will be obtained to assess for cardiac ischemia. 2-hour repeat high-sensitivity troponin will be obtained to assess for ongoing cardiac ischemia. Lab Data Attestation: I reviewed the patient's lab results. Lab results narrative: CBC was reviewed and was within normal limits. Basic metabolic profile was reviewed. Glucose was elevated at 420. Anion gap was normal. CO2 was normal. Initial high-sensitivity troponin was reviewed and was less than 6. 2-hour repeat high-sensitivity troponin was reviewed and was less than 6. Radiography Chest X-Ray - ED: 1 View, Read by ED Physician, Read by Radiologist and No Acute Disease Diagnostic Testing: Portable 1 view chest x-ray was obtained. On my independent interpretation, lung roberto are clear. There is normal cardiac silhouette. Bony thorax is normal. There is no acute process noted. Radiologist also interpreted the x- ray and agrees. EKG Initial EKG: Attestation: I personally reviewed and interpreted this EKG as follows: Interpretation: Sinus Rhythm (77) and No Acute Injury Pattern Comments: EKG was obtained. On my independent interpretation, it showed a normal sinus rhythm with a rate of 77. NM interval, QRS interval, and QTc intervals were all normal. [place] was normal. There are no acute ST or T wave changes. Prior EKG tracings: available for review Prior: Unchanged (12/10/2002) Treatment and Re-Evaluation :: Patient was given aspirin here. Patient was advised of his findings. Patient has a HEART score of 0. Patient was advised that this is low risk for acute cardiac event. Patient was instructed to follow-up with his primary care physician in 5 to 7 days. Patient was instructed return if worse in any way. Patient understood and was agreeable with the plan. All questions were answered. Discharge Plan Triage Chief Complaint: Chest Pain ED Provider: Vijay Luo Dx/Rx/DC Orders Clinical Impression: Chest pain, Hypertension Instructions: ED Chest Pain, Uncertain Cause Prescriptions: No Action (DME) blood pressure monitor Kit See Rx Instructions .ROUTE .MEDSUPPLY Qty: 1 0RF Rx Instructions: Check blood pressure daily for hypertension I10 clindamycin HCl 150 mg capsule 300 mg PO 4X/DAY Qty: 80 0RF Stand Alone Forms: Work / School Excuse Primary Care Provider: Care Physician,No Primary Referrals: Jean Peters MD [Med Staff - Active Staff, Internal Medicine] - 5-7 Days Care Physician,No Primary [Primary Care Provider, Medical] Print Language: Chinese Disposition Disposition: Home, Self Care
--- NOTE | 2024-12-07 16:05 | RAD_ITS ---
PROCEDURE: CHEST 1 VIEW (PORTABLE) 12/07/2024 REASON FOR EXAM: CHEST PAIN TECHNIQUE: Frontal view of the chest. COMPARISON: None FINDINGS: Heart: The heart size is normal. Lungs: The lungs are clear. Bones: The bones are unremarkable. RAD/Chest 1 View (Portable) IMPRESSION: No acute cardiopulmonary abnormality. Reading Location: [id number]
[2024-12-07 16:08] LABS: Hematocrit 42.0 % (40-54); Hemoglobin 14.6 g/dL (13.0-16.5); Immature Granulocytes Count 0.040 X10^3/uL (0.0-0.0); Mean Corp Hgb Conc 34.8 g/dL (32-36); Mean Corpuscular Volume 83.7 fL (80-94); Mean Platelet Vol. 10.5 fl (6.2-12.0); NRBC Flagged by Analyzer 0 % (0-5); Platelet Count 305 K/mm3 (150-450); RBC Distribution Width CV 11.9 % (11.6-14.6); RBC Distribution Width SD 36.0 fl (35.1-43.9); Red Blood Count 5.02 M/mm3 (4.6-6.2); White Blood Count 8.8 K/mm3 (4.4-11.0)
[2024-12-07 16:23] LABS: Anion Gap 14 (5-15); BUN 11 mg/dL (4-19); BUN/Creat Ratio 11.8 RATIO (10-20); Calcium,Total 9.4 mg/dL (7.6-11.0); Carbon Dioxide 22.8 mmol/L (21.0-32.0); Chloride 98 mmol/L (98-108); Estimated Creatinine Clearance 124.62 ml/min (50-250); Glucose 420 mg/dL (70-99); Potassium 3.9 mmol/L (3.3-5.1); Troponin T High Sensitivity < 6 ng/L (<=22)
[2024-12-07 16:33] VITALS: BP 120/73; PULSE 78; RESP 18; O2SAT 96
[2024-12-07 17:00] VITALS: BP 118/73; PULSE 75; RESP 17; O2SAT 96
[2024-12-07 17:43] LABS: Troponin T High Sens 2 HR < 6 ng/L (<=22)
[2024-12-07 17:53] VITALS: BP 118/73; PULSE 75; RESP 17; TEMP 36.8; O2SAT 96
[2024-12-07 18:00] VITALS: BP 121/74; PULSE 71; RESP 16; O2SAT 99
== END 2024-12-07 18:03 | disposition home or self-care (01) ==
PROVIDERS: Emergency Provider Emergency Medicine; Visit Provider Emergency Medicine
DX: R07.9 Chest pain, unspecified (principal); I10 Essential (primary) hypertension; Z87.891 Personal history of nicotine dependence
CPT/HCPCS: 71045; 80048; 84484; 85025; 93005; 99284; A4216